=== PATIENT | male | born 1965 | race Caucasian/White ===

== ENCOUNTER → 2016-10-23 | Outpatient (CLI) | payer OTHER ==
--- NOTE | 2016-10-23 09:38 | REP ---
MR CERVICAL SPINE WITHOUT CONTRAST: HISTORY: Spondylosis. COMPARISON: 09/26/2015 A disc bulge is present at the C2-3 level. There is minimal effacement of the thecal sac without spinal cord compression. Uncinate process and facet hypertrophy are present on the left. These findings produce moderate narrowing of the left C2 neural foramen. The right C2 neural foramina is patent. A disc bulge is present at the C3-4 level. There is moderate effacement of the thecal sac without spinal cord compression. Uncinate process and facet hypertrophy are present on the left. These findings produce mild narrowing of the left C3 neural foramen. The right C3 neural foramina is patent. A disc bulge is present at the C4-5 level. There is mild effacement of the thecal sac without spinal cord compression. The C4 neural foramina are patent. A disc bulge is present at the C5-6 level. There is mild effacement of the thecal sac without spinal cord compression. The C5 neural foramina are patent. A disc bulge is present at the C6-7 level. There is mild effacement of the thecal sac without spinal cord compression. The C6 neural foramina are patent. There is no other disc bulge or herniation. The remaining neural foramina are patent. The spinal cord is normal in signal intensity. Normal signal intensity is present in the cervical vertebral bodies. There is loss of the normal lordotic curve. IMPRESSION: There is cervical spondylosis at the C2-3 through C6-7 levels without spinal cord compression. There is no significant change compared to the previous study. Signed by Fabio Peralta MD 10/23/2016 10:15 A
== END ==
LOC: M RAD 06:31
PROVIDERS: ATTEND Orthopaedic Surgery
DX: M47.892 Other spondylosis, cervical region (principal)

== ENCOUNTER → 2024-05-30 | Outpatient (REF) | LOC: M PLAIMG 09:44 | PROVIDERS: ATTEND Internal Medicine | DX: R06.00 Dyspnea, unspecified (principal) ==